=== PATIENT | female | born 1960 | race African-American/Black ===

== ENCOUNTER 2019-06-12 13:21 | Emergency (ER) | payer OTHER ==
[~2019-06-12] VITALS: Ht 157.5 cm; Wt 83.9 kg
[2019-06-12 13:48] VITALS: BP 137/81
--- NOTE | 2019-06-12 14:26 | NUR ---
Patient discharged with v/s stable. Written and verbal after care instructions given and explained. Patient alert, oriented and verbalized understanding of instructions. Ambulatory with steady gait. All questions addressed prior to discharge. ID band removed. Patient advised to follow up with PMD. Rx of ACCU CHECK AND ACETAMINOPHEN given. Patient educated on indication of medication including possible reaction and side effects. Opportunity to ask questions provided and answered.
--- NOTE | 2019-06-12 14:26 | NUR ---
PT BIB SELF TO THE ED WITH THE CHIEF C/O TINGLING SENSATION AND PAIN ON BOTH HANDS FOR 3DAYS. PT STATES THAT PAIN IS STRONGER IN L HAND AND RADIATES TO UPPER L ARM. PT STATES PAIN 5 1/10 AT THIS TIME. PT STATES PAIN GET WORSE AT NIGHT WAKING HER UP. DENIES FALL OR INJURIES. +CMS. SKIN IS WARM, PINK, AND DRY. PT CONVERSING APPROPRIATELY. PT POSITIONED FOR COMFORT. PHYSICAN SOURCING COORDINATOR TO SEE PT. PMH: DM, HTN RX: METFORMIN, AMLODIPINE, LOSARTAN NKA
[2019-06-12 14:27] VITALS: BP 137/81
== END 2019-06-12 14:26 | disposition home or self-care (01) ==
LOC: MED 13:21
DX: G56.03 Carpal tunnel syndrome, bilateral upper limbs (principal); E11.9 Type 2 diabetes mellitus without complications; I10 Essential (primary) hypertension; Z71.6 Tobacco abuse counseling; F17.210 Nicotine dependence, cigarettes, uncomplicated
CPT/HCPCS: 82948; 99282

== ENCOUNTER 2019-06-20 10:40 | Emergency (ER) | payer OTHER ==
[~2019-06-20] VITALS: Ht 157.5 cm; Wt 83.9 kg
[2019-06-20 10:51] VITALS: BP 125/80
--- NOTE | 2019-06-20 10:51 | NUR ---
PT TAKEN TO ER BED 04
--- NOTE | 2019-06-20 10:54 | NUR ---
PATIENT PRESENTS TO ED WITH C/O BILATERAL HAND NUMBESS/PAIN/SWOLLEN X2 WKS. DENIES INJURY/TRAUMA. STATED WAS HERE 5 DAYS AGO, HAD TX OF MOTRIN, GETTING WORSE, SHARP PAIN RADIATING TO ARMS, COULD NOT SLEEP AND WORK. PT DENIES ANY FEVER, CP, SOB, OR COUGH AT THIS TIME; PATIENT STATES PAIN OF 10/10 AT THIS TIME; VSS; PATIENT POSITIONED FOR COMFORT; HOB ELEVATED; BEDRAILS UP X2; BED DOWN. ER MD MADE AWARE OF PT STATUS.
--- NOTE | 2019-06-20 11:28 | NUR ---
Patient being evaluated by DR. SERRANO at bedside.
[2019-06-20] MEDS ORDERED: KETOROLAC 60 MG/2 ML VIAL IM ONE (11:35)
--- NOTE | 2019-06-20 12:32 | NUR ---
Patient discharged with v/s stable. Written and verbal after care instructions given and explained by Dr Conteh. Patient alert, oriented and verbalized understanding of instructions. Ambulatory with steady gait. All questions addressed prior to discharge. ID band removed. Patient advised to follow up with PMD. Rx of Naproxen given. Patient educated on indication of medication including possible reaction and side effects. Opportunity to ask questions provided and answered.
[2019-06-20 12:44] VITALS: BP 119/74
== END 2019-06-20 12:32 | disposition home or self-care (01) ==
LOC: MED 10:40
DX: G56.03 Carpal tunnel syndrome, bilateral upper limbs (principal); E11.9 Type 2 diabetes mellitus without complications; I10 Essential (primary) hypertension; Z88.0 Allergy status to penicillin
CPT/HCPCS: 96372; 99283; J1885

== ENCOUNTER 2020-02-05 07:12 | Emergency (ER) | payer OTHER ==
[~2020-02-05] VITALS: Ht 157.5 cm; Wt 95.7 kg
[2020-02-05 07:15] VITALS: BP 149/95
--- NOTE | 2020-02-05 07:19 | NUR ---
PT AMBULATED TO BED 12
--- NOTE | 2020-02-05 07:27 | NUR ---
59 Y/O F C/C RUQ ABDOMINAL PAIN RADIATING TO THE LUQ ABDOMINAL AREA, 10/10 PAIN, PRESSURE SENSATION X 4 DAYS. PT TAKEN MOTRIN WITH NO RELIEF, FURTHER STATES TAKEN ABX KEFLEX FOR THE SECOND DAY TODAY. DENIES DYSURIA. ALLERGIES PNC. HX DM,HTN. SX GALLBLADDER TWO YEARS AGO. RX METFORMIN,LISINOPRIL. NO NVD. SIDE RAIL X1.
[2020-02-05] MEDS ORDERED: KETOROLAC 30 MG/ML VIAL IVP ONE (07:50)
[2020-02-05 08:19] LABS: APPEARANCE,URINE CLEAR (CLEAR); BILIRUBIN,URINE NEGATIVE (NEGATIVE); BLOOD, URINE TRACE-I (NEGATIVE); COLOR,URINE YELLOW (YELLOW); LEUKOCYTE ESTERASE ,URINE NEGATIVE (NEGATIVE); NITRITE, URINE NEGATIVE (NEGATIVE); PH,URINE 6.5 (5.0-9.0); UGLUCOSE NEGATIVE (NEGATIVE)
[2020-02-05 08:20] LABS: BASOPHILS # (AUTO) 0.1 K/uL (0.00-0.22); BASOPHILS % (AUTO) 2.1 % (0.0-2.0); EOSINOPHILS # (AUTO) 0.2 K/uL (0-0.4); EOSINOPHILS % (AUTO) 3.6 % (0.0-4.0); HEMATOCRIT 43.7 % (36-48); HEMOGLOBIN 14.5 g/dL (12.0-16.0); LYMPHOCYTES # (AUTO) 2.3 K/uL (2.5-16.5); LYMPHOCYTES % (AUTO) 48.2 % (20.5-51.1); MEAN CORPUSCULAR HEMOGLOBIN 33 pg (27-31); MEAN CORPUSCULAR HGB CONC 33 g/dL (33-37); MONOCYTES # (AUTO) 0.3 K/uL (0.8-1.0); MONOCYTES % (AUTO) 6.2 % (1.7-9.3); NEUTROPHILS # (AUTO) 1.9 K/uL (1.8-7.7); NEUTROPHILS % (AUTO) 39.9 % (42.2-75.2); PLATELET COUNT (AUTO) 245 K/uL (140-450); RED BLOOD CELL COUNT(AUTO) 4.42 MIL/uL (4.20-5.40); RED CELL DISTRIBUTION WIDTH 12.7 % (11.6-13.7); WHITE BLOOD COUNT (AUTO) 4.7 K/uL (4.8-10.8)
[2020-02-05 08:37] LABS: ANION GAP 11.3 (8-16); CREATININE 0.9 mg/dL (0.6-1.3); POTASSIUM 3.3 mmol/L (3.5-5.1)
[2020-02-05 08:43] LABS: ALBUMIN 3.2 g/dL (3.4-5.0); TOTAL BILIRUBIN 0.5 mg/dL (0.0-1.0)
[2020-02-05 09:45] VITALS: BP 140/88
[2020-02-05 10:50] LABS: RBC,URINE 0-5 /HPF (0-5); WBC,URINE 0-5 /HPF (0-5)
== END 2020-02-05 09:46 | disposition home or self-care (01) ==
LOC: MED 07:12
DX: R10.11 Right upper quadrant pain (principal); E27.9 Disorder of adrenal gland, unspecified; E11.65 Type 2 diabetes mellitus with hyperglycemia; E87.6 Hypokalemia; I10 Essential (primary) hypertension; Z88.0 Allergy status to penicillin; Z90.49 Acquired absence of other specified parts of digestive tract
CPT/HCPCS: 36415; 71045; 74176; 80053; 81001; 82948; 83690; 83880; 85025; 93005; 96374; 99285; J1885; Q0092

== ENCOUNTER 2023-05-06 08:09 | Inpatient (IN) | payer OTHER ==
[~2023-05-06] VITALS: Ht 157.5 cm; Wt 81.6 kg
[2023-05-06 08:11] VITALS: BP 128/82; PULSE 96; RESP 22; TEMP 98.5; O2SAT 97
[2023-05-06] MEDS ORDERED: NACL 0.9% 1,000 ML IV SCH (08:40)
[2023-05-06 09:03] LABS: BLOOD GAS PH 7.458 (7.35-7.45)
[2023-05-06 09:04] LABS: BLOOD GAS HCO3 25.6 mmol/L (22-26); BLOOD GAS O2 SAT% 92.7 % (92.0-98.5)
[2023-05-06 09:21] LABS: FLU A ANTIGEN negative (NEGATIVE); FLU B ANTIGEN negative (NEGATIVE)
[2023-05-06 09:29] LABS: BASOPHILS % (AUTO) 0.7 % (0.0-2.0); EOSINOPHILS # (AUTO) 0.1 K/uL (0-0.4); HEMATOCRIT 47.8 % (36-48); HEMOGLOBIN 16.5 g/dL (12.0-16.0); LYMPHOCYTES # (AUTO) 2.4 K/uL (2.5-16.5); LYMPHOCYTES % (AUTO) 47.6 % (20.5-51.1); MEAN CORPUSCULAR HEMOGLOBIN 33 pg (27-31); MEAN CORPUSCULAR HGB CONC 35 g/dL (33-37); MEAN CORPUSCULAR VOLUME 93.8 fL (80-94); MONOCYTES # (AUTO) 0.5 K/uL (0.8-1.0); MONOCYTES % (AUTO) 10.6 % (1.7-9.3); NEUTROPHILS % (AUTO) 39.1 % (42.2-75.2); PLATELET COUNT (AUTO) 178 K/uL (140-450); RED BLOOD CELL COUNT(AUTO) 5.09 MIL/uL (4.20-5.40); RED CELL DISTRIBUTION WIDTH 13.7 % (11.6-13.7)
[2023-05-06 09:43] LABS: ANION GAP 13.9 (8-16); CALCIUM 7.8 mg/dL (8.5-10.1); CARBON DIOXIDE 25.4 mmol/L (21-32); CREATININE 0.7 mg/dL (0.6-1.3); POTASSIUM 3.3 mmol/L (3.5-5.1); TOTAL PROTEIN, SERUM 6.5 g/dL (6.4-8.2)
[2023-05-06 09:48] LABS: LACTIC ACID 1.9 mmol/L (0.4-2.0)
[2023-05-06 10:08] VITALS: PULSE 95; RESP 16; O2SAT 97
[2023-05-06 10:16] VITALS: O2SAT 97
[2023-05-06 12:18] LABS: BILIRUBIN,URINE NEGATIVE (NEGATIVE); COLOR,URINE YELLOW (YELLOW); LEUKOCYTE ESTERASE ,URINE 1+ (NEGATIVE); PROTEIN,URINE NEGATIVE (NEGATIVE); UGLUCOSE NEGATIVE (NEGATIVE); UROBILINOGEN,URINE 0.2 EU/dL (0.2 - 1)
[2023-05-06 12:23] LABS: APPEARANCE,URINE SLIGHTLY HAZY (CLEAR)
[2023-05-06 12:26] LABS: BACTERIA,URINE FEW /HPF (None Seen); SQUAMOUS EPITHELIAL CELL,UR 20-50 /LPF (0-3 (FEW))
[2023-05-06 12:30] LABS: NITRITE, URINE NEGATIVE (NEGATIVE); WBC,URINE 0-5 /HPF (0-5)
[2023-05-06 12:32] LABS: BLOOD, URINE TRACE (NEGATIVE)
[2023-05-06] MEDS ORDERED: ALBUTEROL 0.083% 2.5 MG/3 ML NEBU INH PRN (13:30)
[2023-05-06] MEDS ORDERED: ACETAMINOPHEN 325 MG TAB PO PRN (13:30)
[2023-05-06] MEDS ORDERED: ONDANSETRON 4 MG/2 ML VIAL IVP PRN (13:30)
[2023-05-06] MEDS ORDERED: LORazepam 2 MG/ML VIAL IVP PRN (13:30)
[2023-05-06] MEDS ORDERED: MORPHINE SULFATE 2 MG/ML SYR IVP PRN (13:30)
[2023-05-06] MEDS ORDERED: ACET-9533 (16:24)
[2023-05-06] MEDS ORDERED: METF-346 (16:24)
[2023-05-06] MEDS ORDERED: ATOR10TA51 (16:24)
[2023-05-06] MEDS ORDERED: LOSA50TA57 (16:24)
[2023-05-06] MEDS ORDERED: ALBU10.7 (16:24)
[2023-05-06] MEDS ORDERED: CHOL200072 (16:24)
[2023-05-06] MEDS ORDERED: EMPA10TA (16:24)
[2023-05-06] MEDS ORDERED: AMLO10TA88 (16:24)
[2023-05-06] MEDS ORDERED: predniSONE 20 MG TAB ONE (19:50)
[2023-05-06 19:55] VITALS: PULSE 84; RESP 20; O2SAT 95
[2023-05-06] MEDS: IPRATROPIUM 0.02% 0.5 MG/2.5 ML NEBU INH SCH (19:55)
[2023-05-06 20:01] VITALS: RESP 20
[2023-05-06 21:45] VITALS: BP 147/79; PULSE 97; RESP 20; TEMP 97.7; O2SAT 95
[2023-05-06] MEDS ORDERED: DEXTROSE 50% 50 ML SYR IVP PRN (22:00)
[2023-05-06] MEDS ORDERED: POTASSIUM CHLORIDE 10 MEQ TABER PO ONE (22:00)
[2023-05-07] VITALS (15 sets, daily range): BP systolic 120–137; BP diastolic 65–78; PULSE 77–101; RESP 16–20; TEMP 96.9–98.9; O2SAT 93–100
[2023-05-07] MEDS: IPRATROPIUM 0.02% 0.5 MG/2.5 ML NEBU INH SCH ×3 (00:28→14:56)
[2023-05-07 06:21] LABS: BASOPHILS % (AUTO) 0.5 % (0.0-2.0); EOSINOPHILS # (AUTO) 0.1 K/uL (0-0.4); HEMATOCRIT 44.2 % (36-48); HEMOGLOBIN 15.6 g/dL (12.0-16.0); LYMPHOCYTES # (AUTO) 2.1 K/uL (2.5-16.5); LYMPHOCYTES % (AUTO) 38.6 % (20.5-51.1); MEAN CORPUSCULAR HEMOGLOBIN 33 pg (27-31); MEAN CORPUSCULAR HGB CONC 35 g/dL (33-37); MEAN CORPUSCULAR VOLUME 93.4 fL (80-94); MONOCYTES # (AUTO) 0.6 K/uL (0.8-1.0); MONOCYTES % (AUTO) 11.1 % (1.7-9.3); NEUTROPHILS # (AUTO) 2.5 K/uL (1.8-7.7); NEUTROPHILS % (AUTO) 47.8 % (42.2-75.2); PLATELET COUNT (AUTO) 214 K/uL (140-450); RED BLOOD CELL COUNT(AUTO) 4.74 MIL/uL (4.20-5.40); RED CELL DISTRIBUTION WIDTH 13.5 % (11.6-13.7); WHITE BLOOD COUNT (AUTO) 5.3 K/uL (4.8-10.8)
[2023-05-07] MEDS: BLOOD GLUCOSE MONITORING 1 DEV DEV FS SCH ×2 (06:31→11:39)
[2023-05-07] MEDS: INSULIN LISPRO SLIDING SCALE 100 UNITS/ML VIAL SUBQ PRN ×2 (06:32→11:45)
[2023-05-07 07:17] LABS: ALBUMIN 2.8 g/dL (3.4-5.0); ANION GAP 11.2 (8-16); CALCIUM 7.8 mg/dL (8.5-10.1); CARBON DIOXIDE 27.6 mmol/L (21-32); CREATININE 0.6 mg/dL (0.6-1.3); POTASSIUM 3.8 mmol/L (3.5-5.1); TOTAL BILIRUBIN 1.1 mg/dL (0.0-1.0); TOTAL PROTEIN, SERUM 5.9 g/dL (6.4-8.2)
[2023-05-07] MEDS ORDERED: predniSONE 20 MG TAB PO SCH (09:00)
[2023-05-07] MEDS ORDERED: PRED20TA5 PO (15:01)
== END 2023-05-07 17:17 | disposition home or self-care (01) | DRG 426 ==
LOC: MED 08:09 → MTU 13:30
PROVIDERS: ADMIT Hospitalist; ATTEND Hospitalist
DX: E87.1 Hypo-osmolality and hyponatremia (principal); J96.01 Acute respiratory failure with hypoxia; E87.20 Acidosis, unspecified; R65.10 Systemic inflammatory response syndrome (SIRS) of non-infectious origin without acute organ dysfunction; E44.0 Moderate protein-calorie malnutrition; J06.9 Acute upper respiratory infection, unspecified; I10 Essential (primary) hypertension; N39.0 Urinary tract infection, site not specified; Z20.822 Contact with and (suspected) exposure to COVID-19; F17.200 Nicotine dependence, unspecified, uncomplicated; E11.9 Type 2 diabetes mellitus without complications; Z88.0 Allergy status to penicillin; Z79.899 Other long term (current) drug therapy; Z98.51 Tubal ligation status; Z68.32 Body mass index [BMI] 32.0-32.9, adult
CPT/HCPCS: 36415; 36600; 71045; 80053; 81001; 82803; 82948; 83605; 83735; 83880; 84484; 85025; 87040; 87081; 87086; 93005; 94640; 96360; 99285; J1815; J7512; J7644